=== PATIENT | male | born 1940 | race Caucasian/White ===

== ENCOUNTER → 2017-11-29 | Outpatient (CLI) | payer MEDICARE, OTHER ==
[~2017-11-29] MED LIST: CEP500 PO; HYDR-3378 PO; IBUP200C71 PO; NO ROUTINE MEDS; OXY10 PO; RIV10 PO
== END ==
LOC: RESP 08:39
PROVIDERS: ATTEND Family Medicine
DX: R07.9 Chest pain, unspecified (principal)
CPT/HCPCS: 93017

== ENCOUNTER → 2017-12-09 | Outpatient (CLI) | payer MEDICARE, OTHER ==
[~2017-12-09] MED LIST changes: +REGADENOSON 0.4 MG/5 ML SYR ONE
--- NOTE | 2017-12-09 12:43 | RADIOLOGY IMAGING REPORT ---
FACILITY: [facility] PATIENT NAME: Candido Jordan : 1940 MR: [id number] V: [id number] EXAM DATE: [id number] ORDERING PHYSICIAN: CANDIDO PATEL TECHNOLOGIST: Location: [facility] [place] Patient: Candido Jordan : 1940 Visit/Account:[id number] Date of Sevice: 12/09/2017 EXAMINATION: Single isotope SPECT imaging with regadenoson infusion and gated SPECT imaging. DATE OF EXAMINATION: December 09, 2017. DATE OF INTERPRETATION: December 09, 2017. REQUESTING PHYSICIAN: CANDIDO PATEL. INDICATION: The patient is a 77-year-old male evaluated for chest pain. PROCEDURE: After informed consent the patient received an intravenous injection of 11.8 mCi of Tc-99 m sestamibi followed at an appropriate time interval by rest imaging. The patient then subsequently received an intravenous infusion of 0.4 mg of regadenoson per protocol without complication. Resting heart rate was 50 bpm with a peak heart rate of 80 bpm. Blood pressure at rest was 121 / 92 and fol lowing infusion was 140 / 77. Baseline EKG demonstrates normal sinus rhythm with right bundle branch block, left anterior fascicular block. There were no EKG changes of ischemia following infusion. S ymptoms were nonspecific. The patient then received an intravenous injection of 29.2 mCi of Tc-99m s estamibi followed by stress imaging. RAW DATA: Examination of the summed raw data revealed a good quality study. MYOCARDIAL PERFUSION: The tomographic images demonstrate a mild decrease in myocardial perfusion tra cer uptake in the basal to apical inferior wall seen on both stress and rest images that resolves wit h prone imaging. No reversible defect noted. GATED IMAGES: The gated images demonstrate an ejection fraction 64% with no wall motion abnormality. IMPRESSION: 1. Normal myocardial perfusion scan with no evidence of ischemia. The mild fixed defect in the infer ior wall is likely diaphragm attenuation artifact 2. Normal myocardial perfusion scan. 3. Normal LV systolic function; LVEF 64%. 4. Based on the results of this exam, the patient appears to be at low risk for future cardiovascular events. Report Dictated By: Denita Caldwell at 12/09/2017 12:38 PM Report E-Signed By: Denita Caldwell at 12/09/2017 12:40 PM WSN:[id number]
== END ==
LOC: NUC 04:17
PROVIDERS: ATTEND Family Medicine
DX: R07.89 Other chest pain (principal)
CPT/HCPCS: 78452; 93017; A9500; J2785